=== PATIENT | female | born 1960 | race Caucasian/White ===

== ENCOUNTER 2023-12-03 13:00 | Outpatient (CLI) | payer OTHER | END 2023-12-03 13:01 | disposition home or self-care (01) | LOC: EDBD 13:00 → CSHMAMMO 13:00 | PROVIDERS: ATTEND Family Medicine | DX: Z12.31 Encounter for screening mammogram for malignant neoplasm of breast (principal); Z80.3 Family history of malignant neoplasm of breast; Z98.890 Other specified postprocedural states; N64.89 Other specified disorders of breast | CPT/HCPCS: 77063; 77067 ==

== ENCOUNTER 2024-12-06 11:01 | Outpatient (CLI) | payer OTHER | END 2024-12-06 11:02 | disposition home or self-care (01) | LOC: CSHMAMMO 11:01 | PROVIDERS: ATTEND Family Medicine | DX: Z12.31 Encounter for screening mammogram for malignant neoplasm of breast (principal); Z80.3 Family history of malignant neoplasm of breast; Z98.890 Other specified postprocedural states | CPT/HCPCS: 77063; 77067 ==